=== PATIENT | male | born 2005 | race Caucasian/White ===

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

== ENCOUNTER → 2023-02-12 | Outpatient (CLI) | payer OTHER ==
[2023-02-12 09:24] LABS: HEMATOCRIT 43.4 % (42.0-52.0); HEMOGLOBIN 14.5 g/dl (13.5-17.5); MEAN CORPUSCULAR HGB CONC 33.4 g/dl (32.0-36.5); MEAN CORPUSCULAR VOLUME 89.9 fl (80.0-96.0); PLATELET COUNT, AUTOMATED 235 10^3/uL (150-450); RED BLOOD COUNT 4.83 10^6/uL (4.30-6.10); WHITE BLOOD COUNT 7.4 10^3/uL (4.0-10.0)
[2023-02-12 09:50] LABS: TOTAL 25(OH) VITAMIN D 22.7 NG/ML (20.0-100.0)
[2023-02-12 09:51] LABS: FREE T4 1.04 NG/DL (0.83-1.43); THYROID STIMULATING HORMONE 3.092 uIU/ML (0.48-4.17)
== END ==
LOC: M LAB 07:59
PROVIDERS: ATTEND Physician Assistant
DX: L65.9 Nonscarring hair loss, unspecified (principal)
CPT/HCPCS: 36415; 82306; 83540; 84439; 84443; 85027; G0463

== ENCOUNTER → 2023-02-12 | Outpatient (REF) | payer OTHER | LOC: M SFHCDERM 07:59 | PROVIDERS: ATTEND Physician Assistant | DX: L65.9 Nonscarring hair loss, unspecified (principal); Z53.9 Procedure and treatment not carried out, unspecified reason ==